=== PATIENT | male | born 1965 | race Caucasian/White ===

== ENCOUNTER 2020-11-01 06:07 | Inpatient (IN) ==
--- NOTE | 2020-10-10 12:07 | Anesthesiology Consultation ---
Date of Service October 10, 2020 Assessment & Plan (1) Encounter for pre-operative examination: - Per assessment on 10/09: Travel screen negative. No known COVID-19 positive contacts or current COVID-19 related symptoms. Surgeon arranging preop COVID te sting. Awaiting results. - ETOH use: 4 beers/day reported per PAT RN interview* - Seen by PCP 09/16/20: patient seen for medical clearance for cervical spine surgery. "Patient is medically cleared." Chart Review Chart Review: Acceptable Risk for Surgery and Patient seen in Pre Admission Testing (09/12/20 by Cinda ROD) History Surgery Operation Date: 11/01/20 12:15 Proposed Procedures p C6-C7 Anterior Cervical Discectomy and Fusion, C4-C7 Fusion, C5 Corpectomy, Spinal Cord Monitoring - Naif Kinney DO Height/Weight Height: 5 ft 7 in Weight: 83.915 kg Allergies Allergy/AdvReac Type Severity Reaction Status Date / Time No Known Allergies Allergy Verified 10/09/20 16:08 Medications Home Medications Medication Instructions Recorded Confirmed Last Taken fexofenadine-pseudoephedrine 1 tab PO QAM 08/26/20 10/09/20 Unknown [Judi-D 12 Hour] naproxen sodium 660 mg PO QAM 08/26/20 10/09/20 Unknown triamcinolone acetonide [Nasacort] 55 mcg INTRANASAL QAM 08/26/20 10/09/20 Unknown Past Medical History Medical History Asthma well controlled > no inh Degenerative disc disease Hiatal hernia No reflux or heartburn Osteoarthritis Seasonal allergies Past Family History Family History Brother Diabetes Past Surgical History Surgical History History of appendectomy History of arthroscopy bilat knees History of repair of ACL right History of tooth extraction Hx of umbilical hernia repair Social History Smoking Status: Former smoker tobacco type: smokeless tobacco Do You Dip or Chew Tobacco: Yes Smoking End Date: 20 years ago Hx Alcohol Use: Yes Alcohol type: beer alcohol intake frequency: 3 or more drinks per day Alcohol Intake Frequency Comment: 4 beers per day Hx Substance Use: No substance use type: does not use Review of Systems (Per PAT evaluation 09/12/20 by [employer] PAC) Hx of snoring - questionable witnessed apnea- no hx of sleep study Patient denies chest pain, shortness of breath, dyspnea on exertion, reflux, cough, wheezing, palpitations. No hx of seizures, stroke, [place]. No hx of blood clots or blood transfusions Physical Exam Vital Signs VITALS (Per PAT evaluation 09/12/20 by Cinda Ant PAC) BP 144/90 P 87 TEMP 99.1 SP02 96% RESP 16 Physical Exam (Per PAT evaluation 09/12/20 by Cinda Ant PAC) Constitutional no acute distress ENMT Mouth: no TMJ clicking Thyromental Distance: > or= 3.5 Finger Breadths (4.0) Mallampati Class: III Missing molars, right lower side Neck + limited neck extension (significant ) Respiratory normal respiratory effort; no respiratory distress Auscultation: lungs clear to auscultation bilaterally; no wheezes Cardiovascular Rate/Rhythm: regular rate and regular rhythm Heart Sounds: no murmur Vessels: no carotid bruit Musculoskeletal Spine: + pain with cervical ROM Extremities: extremities normal to inspection Psychiatric Orientation: alert Testing Laboratory Results 09/12/20 WBC 4.45 H/H 15.6/45.5 PLATELETS 229 SODIUM 138 POTASSIUM 3.9 CHLORIDE 104 CO2 29 BUN 10 CREATININE 0.86 GLUCOSE 101 PT 11.2 PTT 29.1 INR 1.1 UA negative leuk est/nitrite TYPE AND SCREEN O-Ab- Electrocardiogram Date: 09/12/20 Findings: + NSR @ (82). Incomplete RBBB. Chest X-Ray Date: 09/12/20 Findings: + NAD. There is mild left basilar atelectasis.
[~2020-11-01 06:07] MED LIST: ACETAMINOPHEN 500 MG TAB PO SCH; CeleBREX 200 MG CAP PO SCH; GABAPENTIN 900 MG DOSE PO SCH; LR 15ML/HR IV SCH; ceFAZolin 2000MG 2,000 MG/15 ML SYR IV SCH
[2020-11-01] MEDS ORDERED: fentaNYL citrate 100 MCG/2 ML VIAL ONE ×2 (06:38→10:09)
[2020-11-01] MEDS ORDERED: ONDANSETRON INJ 2 MG/ML 2 ML VIAL ONE (06:38)
[2020-11-01] MEDS ORDERED: MIDAZOLAM HCL 1 MG/ML 2ML VIAL ONE (06:38)
[2020-11-01] MEDS ORDERED: LIDOCAINE HCL 2% 2 ML VIAL/AMP(20MG/ML) INFIL ONE (06:38)
[2020-11-01] MEDS ORDERED: SUCCINYLCHOLINE CHLORIDE 20 MG/ML 10 ML VIAL IV ONE (06:38)
[2020-11-01] MEDS ORDERED: PROPOFOL IV EMULSION 10 MG/ML 20 ML VIAL IV ONE ×2 (06:38→08:12)
[2020-11-01] MEDS ORDERED: ROCURONIUM BROMIDE 10 MG/ML 5 ML VIAL IV ONE ×2 (06:38→09:45)
[2020-11-01] MEDS ORDERED: DEXAMETHASONE SOD INJ 4 MG/ML VIAL ONE (06:38)
[2020-11-01] MEDS: GABAPENTIN 300 MG CAP PO SCH ×2 (06:51→12:59)
[2020-11-01] MEDS ORDERED: PROPOFOL IV EMULSION 10 MG/ML 100 ML VIAL IV ONE (06:52)
[2020-11-01] MEDS ORDERED: BACITRACIN INJ 50,000 UNIT VIAL ONE (07:09)
[2020-11-01] MEDS ORDERED: LABETALOL HCL IV 5 MG/ML 20ML IV PRN (07:22)
[2020-11-01] MEDS ORDERED: ONDANSETRON INJ 2 MG/ML 2 ML VIAL IV PRN ×2 (07:22→11:45)
[2020-11-01] MEDS ORDERED: ATROPINE SULFATE 0.1 MG/ML 10ML SYR IV PRN (07:22)
--- NOTE | 2020-11-01 07:36 | History & Physical Bridge Note ---
Date of Service November 01, 2020 History & Physical Bridge Note I have examined the patient, reviewed the History & Physical and in the interval since the performance of the History & Physical I have noted the following changes of clinical significance: no changes noted
--- NOTE | 2020-11-01 07:36 | History & Physical Report ---
Date of Service November 01, 2020 Assessment & Plan (1) Cervical stenosis of spinal canal: Admission and Anticipated Discharge Date Admission Date: C6-C7 anterior cervical discectomy and fusion, C4-C7 fusion, C5 corpectomy History of Present Illness Chief Complaint: Neck and arm pain Primary Care Provider: Yasmany Thacker MD This is a 55-year-old female presents with chronic persistent neck and arm symptoms after failing course of nonoperative care she is here for surgical invention. Allergies Allergy/AdvReac Type Severity Reaction Status Date / Time No Known Allergies Allergy Verified 11/01/20 06:42 Home Medications Medication Instructions Recorded Confirmed Type fexofenadine-pseudoephedrine 1 tab PO QAM 08/26/20 11/01/20 History [Judi-D 12 Hour] naproxen sodium 660 mg PO QAM 08/26/20 11/01/20 History triamcinolone acetonide [Nasacort] 55 mcg INTRANASAL QAM 08/26/20 11/01/20 History Past Med/Surg History Medical History Asthma well controlled > no inh Degenerative disc disease Hiatal hernia No reflux or heartburn Osteoarthritis Seasonal allergies Surgical History History of appendectomy History of arthroscopy bilat knees History of repair of ACL right History of tooth extraction Hx of umbilical hernia repair Family History Brother Diabetes Social History Smoking Status: Former smoker Smoking End Date: 20 years ago; Second Hand Exposure: No; Do You Dip or Chew Tobacco: Yes; Tobacco Cessation Education Requested by Patient: No Hx Alcohol Use: Yes Alcohol type: beer Hx Substance Use: No Preferred Language: Bahraini Communication Ability: Effective Technical Service Rep Required: No Beliefs That Will Affect Care: None Current Living Situation: Spouse Feels Safe at Home: Yes Safety Concerns: Feels Safe At This Time Assistive Devices: Glasses and Hearing Aid - Bilateral Physical Exam Physical Exam: Patient is alert and oriented Heart regular rhythm Lungs clear to auscultation Results & Data ([facility]) Vital Signs (Past 12 Hours) Vital Signs Temp Pulse Resp BP Pulse Ox 11/01/20 06:33 36.8 C 75 20 152/90 H 96
[2020-11-01] MEDS ORDERED: KETAMINE 50 MG/5 ML SYRINGE ONE (07:58)
[2020-11-01] MEDS ORDERED: SODIUM CHLORIDE 0.9% INJ 10 ML VIAL ONE (08:22)
[2020-11-01] MEDS ORDERED: NEOSTIGMINE METHYLSULFATE 1 MG/ML 10ML VIAL ONE (08:26)
[2020-11-01] MEDS ORDERED: GLYCOPYRROLATE 0.2 MG/ML VIAL ONE (08:26)
[2020-11-01] MEDS ORDERED: FLOSEAL HEMOSTATIC MATRIX 10ML TOP ONE (10:00)
--- NOTE | 2020-11-01 10:11 | Operative Report ---
Post Operative Report Pre & Post Diagnosis Operation Date: 11/01/20 07:45 Pre-Op Diagnosis: Cervical spinal stenosis with myeloradiculopathy Post-Op Diagnosis: Same I identified the patient and participated in the time-out.: Yes Procedure Operation Date: 11/01/20 07:45 Actual Procedures #1 anterior cervical corpectomy with bilateral foraminotomies C5. #2 anterior cervical discectomy with bilateral foraminotomies C6-C7. #3 placement of 25 mm peek cage C4-C6 and 8 mm peek cage at C6-C7. #4 placement locally harvested morselized autograft combined with DBM within the interbody cages. #5 application 5 complete screws from C5-C7. Surgeon Naif Kinney, DO Teller Manager Hakan Giron Estimated Blood Loss 40 Findings Consistent with Post-Op Diagnosis Specimens None Indications This is a 55-year-old male who presents with above-mentioned diagnosis after failing course of nonoperative care is here for the above-mentioned procedure. Description of Procedure Patient was met with identified informed consent obtained. Patient was then taken to the operative suite underwent a patient placed in spine position just table at [place] head ordered. All bony prominences well-padded eyes inspected to ensure no external pressure placed upon up at this point the anterior cervi jeet spine was prepped and draped in a sterile fashion. The assistance of fluoroscopy at L5 to see 5 6 displacement transverse incision was placed along the right anterior aspect of the cervical spinal lines region. Sharp dissection with assistance of bipolar electrocautery performed down to and exposing anterior cervical spine from C4-C7. Self-retaining retractors placed. And performed a complete discectomy of C4-C5 out to the uncovertebral's bilaterally. Then performed a complete discectomy of C5-6 6 out to the uncovertebral joints bilaterally. Valders distraction pins were then placed in C4 and C6 distract across C5 vertebral body. A complete corpectomy of C5 was then performed including removal of all posterior annular fibers longitudinal ligament bilateral foraminotomies performed. A 25 mm peek cage filled with locally harvested morselized autograft and DBM tapped in position. Then proceeded to C6-C7. A complete discectomy was then performed down to the uncovertebral's nadya aterally. Valders distraction pins again utilized. Removed all posterior annular fibers longitudinal ligament bilateral foraminotomies performed. Endplates burred to subcortical being bone and a 8 mm peek cage filled locally harvested morselized autograft and DBM tapped in position. Distracting apparatus was removed all anterior osteophytes burred to a smooth cortical surface of 5 complete and screws applied with the assistance of fluoroscopy. The incision was then copiously irrigated explored to ensure no damage to surrounding structures remaining bleeding. 10 round HERMELINDA drain inserted. The incision was then closed with 2 Vicryl in a fashion of 4 Monocryl for final skin closure. Steri-Strips dressings placed. Patient will continue PACU stable addition. Please note spinal cord monitoring was utilized at the procedure no changes noted. Lastly Hakan Giron was present at the entire procedure involved in patient positioning complex portions of the surgery and final skin closure. I attest to the content of the Intraoperative Record and any orders documented therein. Any exceptions are noted below.
--- NOTE | 2020-11-01 10:49 | Fluoroscopy Report ---
[place] cervical 2-3V CLINICAL HISTORY: C6-C7 ACDF, C4-C7 fusion, C5 corpectomy COMPARISON STUDY: None. FLUOROSCOPY TIME: 22 seconds. FINDINGS: 3 fluoroscopic spot images of the cervical spine demonstrate anterior cervical discectomy a nd fusion from C4 through C7 with C5 corpectomy. The hardware appears intact. IMPRESSION: Fluoroscopy provided for C4-C7 ACDF. ACT 112: Negative or not required by law. Electronically signed by: Alvarado Carlos M.D. 11/01/2020 10:48 AM
[2020-11-01] MEDS: HYDROmorphone INJ 1 MG/ML SYRINGE IV PRN ×4 (11:05→11:20)
[2020-11-01] MEDS ORDERED: RACEPINEPHRINE 2.25% NEBU SOLN 0.5 ML VIAL INH PRN (11:45)
[2020-11-01] MEDS ORDERED: HYDROmorphone INJ 0.5 MG/0.5 ML SYR IV PRN (11:45)
[2020-11-01] MEDS ORDERED: ONDANSETRON 4 MG OD TAB PO PRN (11:45)
[2020-11-01] MEDS ORDERED: hydrOXYzine HCl 25 MG TAB PO PRN (11:45)
[2020-11-01] MEDS ORDERED: LORazepam 0.5 MG/1 ML VIAL IV PRN (11:45)
[2020-11-01] MEDS ORDERED: ALUMINUM/MAGNESIUM SUSP 30 ML UDC PO PRN (11:45)
[2020-11-01] MEDS ORDERED: NALOXONE HCL 0.4 MG/1 ML VIAL/CARP IV PRN (11:45)
[2020-11-01] MEDS ORDERED: diphenhydrAMINE Capsule 25 MG CAP PO PRN (11:45)
[2020-11-01] MEDS ORDERED: HYDROmorphone INJ 1 MG/ML SYRINGE IV PRN (11:45)
[2020-11-01] MEDS ORDERED: FAMOTIDINE 20 MG TAB PO PRN (11:45)
[2020-11-01] MEDS ORDERED: LORazepam 0.5 MG TAB PO PRN (11:45)
[2020-11-01] MEDS ORDERED: MAGNESIUM HYDROXIDE SUSP 30 ML UDC PO PRN (11:45)
[2020-11-01] MEDS ORDERED: ACETAMINOPHEN 1,000 MG/100 ML VIAL IV PRN (11:45)
[2020-11-01] MEDS ORDERED: DO NOT ADMINISTER FLU VACCINE PRN (11:45)
[2020-11-01] MEDS ORDERED: oxyCODONE HCL IR 5 MG TAB (IMMEDIATE RELEASE) PO PRN (11:45)
[2020-11-01] MEDS ORDERED: DEXAMETHASONE SOD PHOSPHATE 8 MG in SYRINGE 0 ML IV PRN (11:45)
[2020-11-01] MEDS ORDERED: METOCLOPRAMIDE HCL INJ 5 MG/ML 2 ML VIAL IV PRN (11:45)
[2020-11-01] MEDS ORDERED: ACETAMINOPHEN 500 MG TAB PO PRN (11:45)
[2020-11-01] MEDS ORDERED: DO NOT ADMINISTER PNEUMOCOCCAL VACCINE PRN (11:45)
[2020-11-01] MEDS ORDERED: SOD PHOSPHATE/SOD BIPHOSPHATE ENEMA 132 ML BTL PR PRN (11:45)
[2020-11-01] MEDS ORDERED: PROMETHAZINE HCL 12.5 MG in SODIUM CHLORIDE 0.9% 50 ML IV PRN (11:45)
--- NOTE | 2020-11-01 12:16 | Anesthesiology Progress Note ---
Date of Service November 01, 2020 Anesthesia Post Procedure Vital Signs Vital Signs: Temp Pulse Pulse Resp BP Pulse Ox 11/01/20 11:45 36.6 C 88 18 109/72 95 11/01/20 11:35 36.5 C 83 16 113/75 95 11/01/20 11:25 36.5 C 70 16 105/68 95 11/01/20 11:15 76 16 116/79 95 11/01/20 11:05 81 16 125/85 98 11/01/20 10:55 78 17 124/86 97 11/01/20 10:45 79 15 120/81 97 11/01/20 10:35 79 14 123/81 97 11/01/20 10:25 36.8 C 86 14 124/77 96 11/01/20 06:33 36.8 C 75 20 152/90 H 96 Pain Intensity Anterior Neck: Pain Intensity: 4 Transfer of Care Handoff Completed per policy Notes Mental Status: alert / awake / arousable Patient Amnestic to Procedure: Yes Nausea / Vomiting: adequately controlled Pain: adequately controlled Airway Patency, RR, SpO2: stable & adequate BP & HR: stable & adequate Hydration State: stable & adequate Anesthetic Complications: no major complications apparent
[2020-11-01] MEDS: LACTATED RINGER'S 1,000 ML IV SCH ×2 (13:01→18:41)
[2020-11-01] MEDS: DEXAMETHASONE SOD PHOSPHATE 8 MG in SYRINGE 0 ML IV SCH ×2 (14:38→22:11)
[2020-11-01] MEDS: ceFAZolin 2000MG 2,000 MG/15 ML SYR IV SCH ×2 (15:37→23:46)
[2020-11-01] MEDS ORDERED: DOCUSATE SODIUM/SENNA 50/8.6MG TAB PO SCH (21:00)
[2020-11-02] MEDS: DEXAMETHASONE SOD PHOSPHATE 8 MG in SYRINGE 0 ML IV SCH (05:03)
[2020-11-02 05:58] LABS: Basophils # (auto) 0.01 K/uL (0-0.2); Basophils % (auto) 0.1 %; Hematocrit (blood only) 42.7 % (42-52); Hemoglobin 14.5 g/dL (14.0-18.0); Immature Granulocytes # (auto) 0.03 K/uL (0.00-0.02); Immature Granulocytes % (auto) 0.2 %; Lymphocytes # (auto) 0.72 K/uL (1.2-3.4); Lymphocytes % (auto) 5.3 %; Mean Corpuscular Hemoglobin 32.7 pg (25-34); Mean Corpuscular Volume 96.2 fL (80-100); Mean Platelet Volume 10.5 fL (7.4-10.4); Monocytes # (auto) 0.37 K/uL (0.11-0.59); Monocytes % (auto) 2.7 %; Neutrophils # (auto) 12.46 K/uL (1.4-6.5); Neutrophils % (auto) 91.7 %; Platelet Count 215 K/uL (130-400); RDW Coefficient of Variation 12.6 % (11.5-14.5); RDW Standard Deviation 44.3 fL (36.4-46.3); Red Blood Count 4.44 M/uL (4.7-6.1); White Blood Count 13.59 K/uL (4.8-10.8)
[2020-11-02 06:25] LABS: Calcium 8.5 mg/dl (8.5-10.1); Creatinine Clr Calc Pharmacy 114.3 ml/min; Est GFR (African American) 119.2; Est GFR (Non-African American) 102.9
[2020-11-02] MEDS ORDERED: TRIAMCINOLONE ACET NASAL SPRAY 10.8ML BTL SCH (09:00)
[2020-11-02] MEDS ORDERED: FEXOFENADINE 60MG/PSEUDOEPHEDRINE 120MG TAB PO SCH (09:00)
[2020-11-02] MEDS ORDERED: POLYETHYLENE (MIRALAX) 17 GM PACK PO SCH (10:11)
--- NOTE | 2020-11-02 11:24 | Discharge Summary ---
Date of Service November 02, 2020 Admission HPI Per Admitting Provider This is a 55-year-old female presents with chronic persistent neck and arm symptoms after failing course of nonoperative care she is here for surgical invention. Principal Diagnosis Cervical spinal stenosis with myeloradiculopathy Discharge Data Allergies Allergy/AdvReac Type Severity Reaction Status Date / Time No Known Allergies Allergy Verified 11/01/20 06:42 Procedures Performed Operation Date: 11/01/20 07:45 Actual Procedures p C6-C7 Anterior Cervical Discectomy and Fusion, C4-C7 Fusion, C5 Corpectomy, Spinal Cord Monitoring - Naif Kinney DO Ordered Studies 11/01/20 [place] cervical 2-3V Routine [place] fluoroscopy <1hr Routine Hospital Course (1) Cervical stenosis of spinal canal: Patient underwent anterior cervical discectomy fusion tolerated so was taken to orthopedic floor postoperative. Postop day morning swallowing well no hoarseness. Marked improvement of his arm symptoms. Good strength testing. HERMELINDA drain decreasing probably. Subsequent discharge home. Discharge orders instructions from the chart for further review. Total Time Total Time Spent Total Time Spent (In Minutes): 20 minutes Discharge Plan Discharge Items Patient Disposition: Home - Self-Care Reason For Visit: Spinal Stenosis, Cervical Region Discharge Diagnosis: Cervical spinal stenosis with radiculopathy Activity: As commented below Non-emergency contact: Primary Care Provider Call non-emergency contact if: you have any medication questions Follow-up/Referrals: Yasmany Thacker MD [Primary Care Provider] - Diet: Regular Addtl Attending Provider Instructions: ACTIVITY RECOMMENDATIONS: SELF CARE INSTRUCTIONS AFTER CERVICAL FUSIONS 1. No smoking. Smoking drastically decreases the chance of a solid fusion. 2. No bending, lifting more than 5 pounds, or twisting (roll like a log when turning in bed). 3. You may shower 3 days after surgery. Thoroughly dry wound. Do not soak in the tub. 4. Cervical collar: Must be worn at all times including sleeping. You may remove the brace only to bath, eat and if you are sitting in a recliner. 5. Please walk as much as you can for exercise. Gradually increase the distance that you walk as your endurance increases. SPECIAL CARE INSTRUCTIONS: VERY IMPORTANT TO READ AND REVIEW A. Do not take any anti-inflammatory medications (i.e. Indocin, Advil, Aspirin, Naprosyn, Aleve, Motrin, etc.) as these may inhibit the chance of a solid fusion. Tylenol is okay to take. B. Your surgical incision has been closed with a cosmetic suture under the skin that will dissolve in about 6 weeks. In 14 days, you can use a pair of cl jesus scissors and cut the suture that is left outside of the skin at the ends of your incision. C. Complications are uncommon, but please contact us if you have any signs or symptoms of: 1. wound infection (fever higher than 102.5 degrees F, redness, separation of wound, drainage, or increasing pain from the incision) 2. blood clots in legs (pain, swelling, redness and warmth in legs) 3. urinary tract infection (fever higher than 102.5 degrees, burning upon urination or increased frequency of urination) 4. nerve problems (inability to walk on your toes or heels, numbness, loss of bowel or bladder control) 5. any other symptoms that concern you. D. Please call the office at if you have any concerns or questions about your operation or recovery. MANAGING PAIN AFTER SPINAL SURGERY 1. Narcotic medication is intended for short-term use and will be provided for surgical pain. Surgical pain usually lasts for a period of 4-6 weeks. Narcotic medication includes Percocet, Vicodin, Darvocet, Tylenol #3 or Lortab. 2. Longer-term pain is more appropriately treated with non-narcotic medication such as Tylenol ES. 3. Muscle spasm is not appropriately treated with narcotics. Muscle relaxers such as Soma, Flexeril or Skelaxin can be used along with Tylenol ES. 4. Remember that we all live with some "aches and pains". This is not unusual or uncommon after an injury or as we get older. 5. We will provide appropriate medication within the normal guidelines of their prescribed use. We will also be very cautious and aware of potential abuse and extended duration of patients' medication needs. 6. Please allow 2-3 days to process refills. Prescriptions will not be mailed but must be picked up at the office. FOLLOW UP VISIT: Keep your scheduled follow-up appointment. Any questions, please call the office at . Pending Studies at Discharge: No Stand-Alone Forms: My [facility], Smoking Cessation Medications and DC Order Prescriptions: New tramadol 50 mg tablet 50 mg PO Q6H PRN (Reason: pain, moderate) Qty: 20 RF: 0 oxycodone 5 mg tablet 5 mg PO Q6H PRN (Reason: pain, severe) Qty: 2 RF: 0 Continued triamcinolone acetonide 55 mcg/actuation Aerosol 55 mcg INTRANASAL QAM RF: 0 fexofenadine-pseudoephedrine [Judi-D 12 Hour] 60-120 mg Tablet Extended Release 12 Hr 1 tab PO QAM RF: 0 Discontinued naproxen sodium 220 mg Tablet 660 mg PO QAM RF: 0 Discharge Orders: Discharge Order (Routine); Ordered 11/02/20 Ordered By: Naif Kinney Admission Data Admit Date/Time: 11/01/20 10:46 Attending Provider: Naif Kinney Admit Provider: Naif Kinney Primary Care Provider: Yasmany Thacker
[2020-11-03] MEDS ORDERED: bisacodyL 10 MG SUPP PR PRN (10:11)
== END 2020-11-02 13:00 | disposition home or self-care (01) | DRG 472 ==
LOC: ASU 06:07 → 3E 10:46